=== PATIENT | female | born 1950 | race Caucasian/White ===

== ENCOUNTER 2017-02-16 09:25 | Emergency (ER) | payer MEDICARE ==
[~2017-02-16] VITALS: Ht 167.6 cm; Wt 78.0 kg
[2017-02-16 09:32] VITALS: BP 182/88; PULSE 69; RESP 16; TEMP 97.9; O2SAT 98
[2017-02-16] MEDS ORDERED: BACT800T5 PO (10:31)
[2017-02-16] MEDS ORDERED: CEPH-460 PO (10:31)
--- NOTE | 2017-02-16 10:32 | PD ---
HPI . Cellulitis Chief Complaint: Skin Problem Time Seen by Provider: 09:54 Travel History International Travel<30 days: No Contact w/Intl Traveler<30days: No Traveled to known affect area: No History of Present Illness HPI 66-year-old female presents emergency department for evaluation of a area of erythema and swelling to the left lateral lower leg. Patient states she fell approximately 10 days ago and sustained an abrasion on her left lateral lower leg and left elbow. The left elbow healed appropriately and the abrasion is now gone. The left leg is growing in area of redness and swelling. Patient denies any major medical history. Patient denies taking any daily medication. Patient does not have any allergies. Patient denies any fever, chills, malaise , chest pain, shortness breath, nausea, vomiting, diarrhea. PFSH Past Medical History Diminished Hearing: No Gastrointestinal Disorders: Yes (PROLAPSE RECTAL ) Reproductive: No Tetanus Vaccination: < 5 Years Influenza Vaccination: No PNEUMOCCOCAL Vaccine (Year): 2 ?: Not Past Surgical History Abdominal Surgery: Yes (PROLAPSED RECTAL REPAIR) Genitourinary Surgery: Yes (HYSTERECTOMY ) Hysterectomy: Yes Social History Alcohol Use: Yes (RARE) Tobacco Use: No Substance Use: No Allergies-Medications (Allergen,Severity, Reaction): Coded Allergies: No Known Allergies (Unverified Adverse Reaction, Unknown, 02/16/17) Reported Meds & Prescriptions Reported Meds & Active Scripts Active Keflex (Cephalexin) 500 Mg Capsule 500 Mg PO Q6H 5 Days Bactrim DS (Sulfamethoxazole-Trimethoprim) 800-160 Mg Tab 1 Tab PO BID 10 Days Review of Systems Except as stated in HPI: all other systems reviewed are Neg Physical Exam Narrative GENERAL: Well-nourished, well-developed 66-year-old female patient in no acute distress. Nontoxic appearing. SKIN: Abrasion on left lateral lower leg proximal to the lateral malleolus with an area of erythema and mild edema surrounding measuring 5 cm 3 cm. HEAD: Normocephalic. Atraumatic. EYES: No scleral icterus. No injection or drainage. NECK: Supple, trachea midline. No JVD or lymphadenopathy. CARDIOVASCULAR: Regular rate and rhythm without murmurs, gallops, or rubs. 2+ pedal pulses. RESPIRATORY: Breath sounds equal bilaterally. No accessory muscle use. GASTROINTESTINAL: Abdomen soft, non-tender, nondistended. MUSCULOSKELETAL: No cyanosis, or edema. Data Data Last Documented VS Vital Signs Date Time Temp Pulse Resp B/P (MAP) Pulse Ox O2 Delivery O2 Flow Rate FiO2 02/16/17 09:32 97.9 69 16 182/88 (119) 98 Orders Orders Ed Discharge Order (02/16/17 10:33) MDM Medical Decision Making Medical Screen Exam Complete: Yes Emergency Medical Condition: Yes Differential Diagnosis Differential diagnoses include but not limited to cellulitis, laceration, abrasion, osteomyelitis, sepsis Narrative Course 66-year-old female presents emergency department for evaluation of an abrasion to the left lateral lower leg that she sustained 10 days ago when she fell in a parking lot. Patient denies any other injuries during this fall outside of an abrasion to her left elbow which is already healed appropriately. Patient denies any major medical history. Patient doesn't take any daily medication. Patient denies any fevers, chills, malaise, shortness breath. Left lower leg is neurovascularly intact. The option of performing an x-ray to ensure that the infection has not reach the bone was discussed but the patient preferred not to have an x-ray at this time. She said that she would prefer just to take antibiotics and see if the infection clears and if it does not she will return to the emergency department for further evaluation. Patient is discharged home with prescription for Bactrim and Keflex and instructions to keep wound clean and dry and return with any worsening condition. Diagnosis Primary Impression: Cellulitis Qualified Codes: L03.116 - Cellulitis of left lower limb Referrals: Primary Care Physician Patient Instructions: Bone Marrow or Stem Cell Transplantation (GEN), General Instructions Additional Instructions: Please return to emergency department if your symptoms return or worsen. Follow up with your primary care provider. Take medications as prescribed. Keep wound clean and dry. Med/Other Pt SpecificInfo: Prescription(s) given Scripts Cephalexin (Keflex) 500 Mg Capsule 500 MG PO Q6H for Infection for 5 Days, #20 CAP 0 Refills Prov: Niecy Knox 02/16/17 Sulfamethoxazole-Trimethoprim (Bactrim DS) 800-160 Mg Tab 1 TAB PO BID for Infection for 10 Days, #20 TAB 0 Refills Prov: Niecy Knox 02/16/17 Disposition: 01 DISCHARGE HOME Condition: Stable Niecy Knox Feb 16, 2017 10:32
== END 2017-02-16 10:51 | disposition home or self-care (01) ==
LOC: PHED 09:25 → PHEFT 10:51
DX: L03.116 Cellulitis of left lower limb (principal); W19.XXXA Unspecified fall, initial encounter; Y92.481 Parking lot as the place of occurrence of the external cause
CPT/HCPCS: 99284

== ENCOUNTER 2017-02-21 09:40 | Emergency (ER) | payer MEDICARE ==
[~2017-02-21] VITALS: Ht 167.6 cm; Wt 77.0 kg
[~2017-02-21 09:40] MED LIST: BACT800T5 PO; CEPH-460 PO
[2017-02-21 09:48] VITALS: BP 143/68; PULSE 69; RESP 15; TEMP 98.6; O2SAT 97
--- NOTE | 2017-02-21 10:31 | PD ---
HPI Chief Complaint: Wound/Suture/Staple Re-Check Time Seen by Provider: 10:28 Travel History International Travel<30 days: No Contact w/Intl Traveler<30days: No Traveled to known affect area: No History of Present Illness HPI 66-year-old female presents for recheck. The patient was seen here on February 16 after sustaining an abrasion on her left lower leg. She was felt to have mild cellulitis around the wound. She was started on Bactrim and Keflex which she has been taking as prescribed. She reports that she has had difficulty seeing the area because it is on her lower leg but she wanted to have a recheck today. She is uncertain whether or not the area of redness is better or worse. She reports some scabbing. She denies fevers, chills. No other complaints. History Past Medical Histgory Tetanus Vaccination: > 5 Years Social History Alcohol Use: Yes (OCCASIONAL) Tobacco Use: No Allergies-Medications (Allergen,Severity, Reaction): Coded Allergies: No Known Allergies (Unverified Adverse Reaction, Unknown, 02/21/17) Reported Meds & Prescriptions Reported Meds & Active Scripts Active Keflex (Cephalexin) 500 Mg Capsule 500 Mg PO Q6H 5 Days Bactrim DS (Sulfamethoxazole-Trimethoprim) 800-160 Mg Tab 1 Tab PO BID 10 Days Review of Systems General / Constitutional: No: Fever, Chills Skin: Positive Other (skin redness, abrasion, scabbing) Physical Exam Narrative GENERAL: Well-nourished female in no acute distress SKIN: Warm and dry. The scab formation lateral left lower leg. Faint surrounding erythema. CARDIOVASCULAR: Regular rate and rhythm. No murmur appreciated. RESPIRATORY: No accessory muscle use. Clear to auscultation. Breath sounds equal bilaterally. MUSCULOSKELETAL: No obvious deformities. No clubbing. No cyanosis. No edema. Data Data Last Documented VS Vital Signs Date Time Temp Pulse Resp B/P (MAP) Pulse Ox O2 Delivery O2 Flow Rate FiO2 02/21/17 09:48 98.6 69 15 143/68 (93) 97 MDM Medical Screen Exam Complete: Yes Emergency Medical Condition: No Narrative Course Physical examination is reassuring with very mild cellulitis around a healing scab. Discussed signs and symptoms that would warrant return to emergency room. At this point in time no further intervention is necessary. A medical screening exam was performed: At the time of evaluation the presenting medical condition was determined not to be of an emergent nature. The patient was given the option of receiving additional care, but declined. Patient was given options for additional community resources from which to obtain care. The Patient Has Been advised to seek medical attention for their presenting complaint. The patient has been advised to return to the ER at any time if an emergent condition develops. Primary Impression: Encounter for medical screening examination Preston Ortega Feb 21, 2017 10:31
== END 2017-02-21 10:35 | disposition left against medical advice (07) ==
LOC: PHEFT 09:40
DX: S80.812D Abrasion, left lower leg, subsequent encounter (principal)
CPT/HCPCS: 99281